=== PATIENT | male | born 1970 | race Caucasian/White ===

== ENCOUNTER → 2016-06-10 08:01 | Day surgery (SDC) | payer BC ==
[~2016-06-10 08:01] MED LIST: Buffered Lidocaine 1% SYRIN* 3 ML/SYR SYRINGE INTRADERM ONE; Bupivacaine 0.25% SDV* 30 ML ONE; Dexamethasone IV* 4 MG/ML 1 ML (4 MG) IV SLOW PU ONE; Dexamethasone IV* 4 MG/ML 1 ML (4 MG) ONE; Famotidine IV* 10 MG/ML 2 ML (20 mg) IV ONE; Famotidine IV* 10 MG/ML 2 ML (20 mg) ONE; HYDROcodone/ACETAMIN 5-325 MG* 1 TAB PO PRN; Ketorolac INJ* 30 MG/ML 1 ML VIAL IV PRN; Lidocaine 2% PF* 5 ML VIAL ONE; Midazolam* 1 MG/ML 2 ML VIAL (2 MG) ONE; Propofol* 10 MG/ML 20 ML BTL IV PUSH ONE; fentaNYL* 50 MCG/ML 2 ML VIAL (100 MCG VIAL) IV PRN; fentaNYL* 50 MCG/ML 2 ML VIAL (100 MCG VIAL) ONE
[2016-06-10 11:04] VITALS: BP 103/80
--- NOTE | 2016-06-11 03:10 | OP ---
DATE OF OPERATION: 06/10/16 [facility] DATE OF : 74 SURGEON: Nikhil Carrasquillo MD. HIP HOP DANCER: None. ANESTHESIOLOGIST: Dr. Dieter Andujar. ANESTHESIA: Local MAC. PRE-OP DIAGNOSIS: Right dorsal hand cyst. POST-OP DIAGNOSIS: Right dorsal hand cyst. OPERATIVE PROCEDURE: Excision, right dorsal hand cyst. INDICATIONS: Woo has had a very slowly enlarging right dorsal hand ganglion cyst with little bit of purplish discoloration to it. He got MRI and it looks like a cyst and a benign lesion. We had talked about treatment options. He wanted the cyst excised and so after our discussion of risks and benefits, we planned for that. EBL: 2 mL. COMPLICATIONS: None. FINDINGS: Dorsal subcutaneous cyst. DESCRIPTION OF PROCEDURE: Woo was seen in the preoperative holding area , and the correct site, side, and procedure were identified. We came back to the operating room, he got some anesthesia and then I anesthetized the operative site with 2 cc of 0.25% Marcaine. We then prepped and draped the arm in the usual fashion. A formal time-out was performed. I made a longitudinal incision directly over the cyst. The dorsum of the cyst was adherent to the underlying dermis. This layer was . I then used tenotomy scissors to circumferentially excise the cyst. It did not really look like there were tracts that were tracking back to any joint. I did cauterize a couple of vessels attached to the cyst. Care was taken to preserve the dorsal cutaneous nerves. Once this was fully excised, I again examined the area and cauterized a couple of potential bleeders. The wound was then again irrigated and closed with some 4-0 nylon suture. The wound was dressed with Xeroform, 4x4s, sterile Webril and Jay wrap. He was taken to recovery room in stable condition. [id number]/[facility] #: [id number] [facility]ENTER[facility]andra
== END | disposition home or self-care (01) ==
LOC: OREAST 08:01
PROVIDERS: ATTEND Orthopaedic Surgery Hand Surgery
DX: M71.341 Other bursal cyst, right hand (principal)
CPT/HCPCS: 88304; J1100; J2250; J2704; J3010